=== PATIENT | female | born 1955 | race Hispanic/Latino ===

== ENCOUNTER → 2024-11-08 | Outpatient (CLI) | payer OTHER ==
[~2024-11-08] MED LIST: CICL544C TP; INSLAN SQ; LORA10CA9 PO; PANT40TA54 PO; POTA20PA41 PO; SAXA5TAB PO; VALS1TAB76 PO
--- NOTE | 2024-11-08 12:53 | HMCIMG ---
Exam Type: LUMBAR W FLEXION/EXTENSION Clinical Information: Low back pain Comparison: None Findings: Exam of the lumbosacral spine demonstrates no evidence of fracture, subluxation, or significant degenerative change. The alignment of the spine is normal. The disc spaces are intact. The facet joints are preserved without significant degenerative changes Bone mineralization is normal. Lateral flexion and extension views demonstrate no abnormal motion. Impression: Normal exam of the lumbosacral spine.
== END | disposition home or self-care (01) ==
LOC: RAH 11:52
PROVIDERS: ATTEND Physical Medicine & Rehabilitation
DX: M99.02 Segmental and somatic dysfunction of thoracic region (principal); M54.50 Low back pain, unspecified; E11.49 Type 2 diabetes mellitus with other diabetic neurological complication
CPT/HCPCS: 72114

== ENCOUNTER → 2025-01-26 | Outpatient (CLI) | payer OTHER ==
--- NOTE | 2025-01-26 13:45 | HMCIMG ---
THORACIC SPINE 3VWS HISTORY: Scoliosis COMPARISON: None FINDINGS: 4 images of scoliosis series were obtained. There are degenerative changes with kyphosis, spondylosis. There is straightening of normal lordotic curvature which may be related to muscle spasm or positioning. No loss of vertebral height is seen. No fracture or dislocation is seen. Degenerative changes are seen. IMPRESSION: 1. No fracture is seen.
== END | disposition home or self-care (01) ==
LOC: RAH 13:05
PROVIDERS: ATTEND Family Medicine
DX: M47.814 Spondylosis without myelopathy or radiculopathy, thoracic region (principal); M40.294 Other kyphosis, thoracic region; M99.02 Segmental and somatic dysfunction of thoracic region
CPT/HCPCS: 72072